=== PATIENT | female | born 1980 | race American Indian/Alaskan Native ===

== ENCOUNTER 2018-08-23 00:41 | Inpatient (IN) | payer SELFPAY ==
[2018-08-23 01:13] LABS: Basophils # (Auto) 0.1 K/mm3 (0.0-0.1); Basophils % (Auto) 0.6 % (0.0-1.8); Hematocrit 38.7 % (30.3-42.9); Lymphocytes # (Auto) 1.2 K/mm3 (1.2-5.4); Lymphocytes % (Auto) 14.2 % (13.4-35.0); Mean Corpuscular HGB Conc 34 % (30-34); Mean Corpuscular Volume 77 fl (79-97); Monocytes # (Auto) 0.9 K/mm3 (0.0-0.8); Monocytes % (Auto) 10.2 % (0.0-7.3); Platelet Count 249 K/mm3 (140-440); Red Blood Count 5.06 M/mm3 (3.65-5.03); Red Cell Distribution Width 14.8 % (13.2-15.2)
[2018-08-23 01:16] LABS: Mean Corpuscular Hemoglobin 26 pg (28-32)
[2018-08-23 01:25] LABS: Calcium 9.4 mg/dL (8.4-10.2)
--- NOTE | 2018-08-23 06:52 | Emergency Department Report ---
ED Abdominal Pain HPI - General Chief Complaint: Dyspnea/Respdistress Stated Complaint: LT SIDE PAIN ADEN Time Seen by Provider: 08/23/18 06:48 Source: patient Mode of arrival: Ambulatory Limitations: No Limitations - History of Present Illness Initial Comments: Patient's 38-year-old female presents emergency room with complaints of left lower quadrant pain. Patient states the pain is temperature. He states the pain is better with rest and worse with movement and palpation. Patient states that she is also having chills and nausea and vomiting. Patient states she is also near syncopal due to the amount of pain. Patient denies constipation. Patient denies diarrhea. Patient denies blood in his stool. Last menstrual period was 08/18/2018. MD Complaint: abdominal pain -: Sudden Location: LLQ Radiation: none Migration to: no migration Severity: severe Severity scale (0 -10): 10 Quality: stabbing, sharp Consistency: constant Improves With: rest Worsens With: movement Associated Symptoms: nausea, vomiting, chills. denies: diarrhea, fever, constipation, dysuria, hematemesis, hematochezia, melena, hematuria, anorexia, syncope - Related Data LMP (females 10-50): this week Home Medications Medication Instructions Recorded Confirmed Last Taken Meloxicam [Mobic] 7.5 mg PO QDAY 08/23/18 08/23/18 08/22/18 Allergies Allergy/AdvReac Type Severity Reaction Status Date / Time cheese Allergy Vomiting Verified 08/23/18 00:49 milk Allergy Vomiting Verified 08/23/18 00:49 sour cream Allergy Vomiting Uncoded 08/23/18 00:49 ED Review of Systems ROS: Stated complaint: LT SIDE PAIN ADEN Other details as noted in HPI Constitutional: chills. denies: fever Eyes: denies: eye pain, eye discharge, vision change ENT: denies: ear pain, throat pain Respiratory: denies: cough, shortness of breath, wheezing Cardiovascular: denies: chest pain, palpitations Endocrine: no symptoms reported Gastrointestinal: abdominal pain, nausea, vomiting. denies: diarrhea Genitourinary: denies: urgency, dysuria, discharge Musculoskeletal: denies: back pain, joint swelling, arthralgia Skin: denies: rash, lesions Neurological: denies: headache, weakness, paresthesias Psychiatric: denies: anxiety, depression Hematological/Lymphatic: denies: easy bleeding, easy bruising ED Past Medical Hx - Past Medical History Previous Medical History?: Yes Additional medical history: lupus - Surgical History Past Surgical History?: No - Family History Family history: no significant - Social History Smoking Status: Never Smoker Substance Use Type: None - Medications Home Medications: Home Medications Medication Instructions Recorded Confirmed Last Taken Type Meloxicam [Mobic] 7.5 mg PO QDAY 08/23/18 08/23/18 08/22/18 History ED Physical Exam - General Limitations: No Limitations General appearance: alert, in no apparent distress - Head Head exam: Present: atraumatic, normocephalic - Eye Eye exam: Present: normal appearance - ENT ENT exam: Present: mucous membranes moist - Neck Neck exam: Present: normal inspection - Respiratory Respiratory exam: Present: normal lung sounds bilaterally. Absent: respiratory distress - Cardiovascular Cardiovascular Exam: Present: regular rate, normal rhythm. Absent: systolic murmur, diastolic murmur, rubs, gallop - GI/Abdominal GI/Abdominal exam: Present: soft, tenderness (llq), normal bowel sounds - Extremities Exam Extremities exam: Present: normal inspection - Back Exam Back exam: Present: normal inspection - Neurological Exam Neurological exam: Present: alert, oriented X3 - Psychiatric Psychiatric exam: Present: normal affect, normal mood - Skin Skin exam: Present: warm, dry, intact, normal color. Absent: rash ED Course Vital Signs 08/23/18 08/23/18 08/23/18 00:50 04:45 04:54 Temperature 98.8 F 98.4 F Pulse Rate 74 64 Respiratory 16 15 Rate Blood Pressure 121/73 Blood Pressure 117/64 [Right] O2 Sat by Pulse 100 100 100 Oximetry 08/23/18 08/23/18 08/23/18 05:00 05:31 05:45 Temperature Pulse Rate 63 64 Respiratory 15 16 19 Rate Blood Pressure 119/69 119/69 Blood Pressure [Right] O2 Sat by Pulse 100 100 99 Oximetry 08/23/18 08/23/18 08/23/18 06:15 06:31 06:34 Temperature 98.4 F Pulse Rate 64 59 L 64 Respiratory 18 19 18 Rate Blood Pressure 111/75 111/75 Blood Pressure 111/75 [Right] O2 Sat by Pulse 99 99 99 Oximetry 10/10/18 10/10/18 10/10/18 06:41 06:51 12:29 Temperature Pulse Rate 61 65 87 Respiratory 18 19 16 Rate Blood Pressure 111/75 111/75 Blood Pressure 120/78 [Right] O2 Sat by Pulse 99 99 98 Oximetry - Reevaluation(s) Reevaluation #1: Discussed plan of care with patient. Patient agrees with plan of care and urology consult and stent placement. 08/23/18 09:54 - Consultations Consultation #1: urology consulted. Dr Godfrey recommends stent 08/23/18 09:53 Patient will be admitted to the hospitalist service and urology will be consulted. 08/23/18 11:26 Consultation #2: Hospitalist consulted for admission. Hospitalist to admit patient and assume care 08/23/18 11:27 ED Medical Decision Making - Lab Data Result diagrams: 08/23/18 01:02 08/23/18 01:02 - Radiology Data Radiology results: report reviewed CT ABDOMEN PELVIS WITHOUT CONTRAST: HISTORY: abdominal pain. COMPARISON: none. TECHNIQUE: Helical CT in 1.25mm intervals without IV contrast. Sagittal and coronal reconstructions. FINDINGS: Lung bases: Normal. Liver: Normal. Biliary system: Normal. Pancreas: Normal. Spleen: Normal. Kidneys/ureters/bladder: A 6 x 6 x 6 mm calculus is identified in the proximal left ureter at the level of L3. There is mild upstream left hydronephrosis. There are 2 calyceal stones in the superior left kidney measuring up to 3 mm. A 1 mm calyceal stone is identified in the mid right kidney. No right ureteral stones. The bladder is unremarkable. Adrenal glands: Normal. Aorta: Normal. Intestines: Within normal limits. Appendix: Not identified. Pelvic viscera: A 3.1 cm right adnexal cyst is suspected. A 5 cm exophytic fibroid from the uterine fundus is also suspected. The left adnexa is unremarkable. Ascites: Trace free pelvic fluid. Adenopathy: None. Musculoskeletal: Normal. IMPRESSION: 6 mm calculus in the proximal left ureter, mildly obstructing. Bilateral renal calyceal stones. 3.1 cm right ovarian cyst. Uterine fibroid. Transcribed By: TTR Dictated By: BRANDY RODRÍGUEZ JR, MD Electronically Authenticated By: BRANDY RODRÍGUEZ JR, MD Signed Date/Time: 08/23/18 5157 FINAL REPORT EXAM: XRAY CHEST 2 VIEWS HISTORY: shortness of breath COMPARISON: None available. FINDINGS:: Frontal and lateral views of the chest obtained. Cardiac silhouette is within normal limits. No focal consolidation or effusion. No pneumothorax. Visualized bony thorax is grossly intact. IMPRESSION:: No acute findings. Transcribed By: LMA Dictated By: AUGIE WEATHERS MD Electronically Authenticated By: AUGIE WEATHERS MD Signed Date/Time: 08/23/18 0132 - Medical Decision Making Patient is 38-year-old female presents emergency room with complaints of left flank pain and left lower abdominal pain. CT scan was done and shows a 6 mm stone in the left ureter. Urology was consulted and will see patient for a stent and possible further treatment. Patient will be admitted to the hospitalist service for further evaluation treatment. - Differential Diagnosis abdominal pain. Flank pain. Kidney stone. UTI. Gastroenteritis Critical care attestation.: If time is entered above; I have spent that time in minutes in the direct care of this critically ill patient, excluding procedure time. ED Disposition Clinical Impression: Left flank pain, Renal stone Abdominal pain Qualifiers: Abdominal location: left lower quadrant Qualified Code(s): R10.32 - Left lower quadrant pain Hydronephrosis Qualifiers: Hydronephrosis type: with renal calculous obstruction Qualified Code(s): N13.2 - Hydronephrosis with renal and ureteral calculous obstruction Disposition: OP ADMIT IP TO THIS HOSP Is pt being admited?: Yes Does the pt Need Aspirin: No Condition: Serious Time of Disposition: 11:26
[2018-08-23 07:29] LABS: HCG Qualitative,Urine Negative (Negative)
[2018-08-23 07:36] LABS: Bacteria,Urine 1+ /HPF (Negative); Bilirubin,Urine NEG (Negative); Blood,Urine LG (Negative); Color,Urine Yellow (Yellow); Mucus,Urine FEW /HPF; Protein,Urine <15 mg/dL mg/dL (Negative); Urobilinogen,Urine < 2.0 mg/dL (<2.0)
[2018-08-23 07:37] LABS: RBC,Urine > 182.0 /HPF (0.0-6.0)
--- NOTE | 2018-08-23 07:54 | Cat Scan Report ---
CT ABDOMEN PELVIS WITHOUT CONTRAST: HISTORY: abdominal pain. COMPARISON: none. TECHNIQUE: Helical CT in 1.25mm intervals without IV contrast. Sagittal and coronal reconstructions. FINDINGS: Lung bases: Normal. Liver: Normal. Biliary system: Normal. Pancreas: Normal. Spleen: Normal. Kidneys/ureters/bladder: A 6 x 6 x 6 mm calculus is identified in the proximal left ureter at the level of L3. There is mild upstream left hydronephrosis. There are 2 calyceal stones in the superior left kidney measuring up to 3 mm. A 1 mm calyceal stone is identified in the mid right kidney. No right ureteral stones. The bladder is unremarkable. Adrenal glands: Normal. Aorta: Normal. Intestines: Within normal limits. Appendix: Not identified. Pelvic viscera: A 3.1 cm right adnexal cyst is suspected. A 5 cm exophytic fibroid from the uterine fundus is also suspected. The left adnexa is unremarkable. Ascites: Trace free pelvic fluid. Adenopathy: None. Musculoskeletal: Normal. IMPRESSION: 6 mm calculus in the proximal left ureter, mildly obstructing. Bilateral renal calyceal stones. 3.1 cm right ovarian cyst. Uterine fibroid.
[2018-08-23] MEDS ORDERED: TORADOL IV ONE (09:05)
[2018-08-23] MEDS ORDERED: NACL 0.9% 1000 ML 1,000 ML IV ONE (09:05)
--- NOTE | 2018-08-23 10:28 | XRay Report ---
FINAL REPORT EXAM: XRAY CHEST 2 VIEWS HISTORY: shortness of breath COMPARISON: None available. FINDINGS:: Frontal and lateral views of the chest obtained. Cardiac silhouette is within normal limits. No focal consolidation or effusion. No pneumothorax. Visualized bony thorax is grossly intact. IMPRESSION:: No acute findings.
--- NOTE | 2018-08-23 13:22 | Progress Note ---
Assessment and Plan l ureteral stone for cysto stent poss l litho kub pain better will wait until am to do litho and poss stent dictated Subjective Date of service: 08/23/18 Principal diagnosis: ureteral stone Objective - Constitutional Vitals: Vital Signs - 12hr 08/23/18 08/23/18 08/23/18 04:45 04:54 05:00 Temperature 98.4 F Pulse Rate 64 Respiratory 15 15 Rate Blood Pressure Blood Pressure 117/64 [Right] O2 Sat by Pulse 100 100 100 Oximetry 08/23/18 08/23/18 08/23/18 05:31 05:45 06:15 Temperature Pulse Rate 63 64 64 Respiratory 16 19 18 Rate Blood Pressure 119/69 119/69 111/75 Blood Pressure [Right] O2 Sat by Pulse 100 99 99 Oximetry 08/23/18 08/23/18 08/23/18 06:31 06:34 06:41 Temperature 98.4 F Pulse Rate 59 L 64 61 Respiratory 19 18 18 Rate Blood Pressure 111/75 111/75 Blood Pressure 111/75 [Right] O2 Sat by Pulse 99 99 99 Oximetry 08/23/18 08/23/18 08/23/18 06:51 12:29 12:49 Temperature Pulse Rate 65 87 92 H Respiratory 19 16 19 Rate Blood Pressure 111/75 Blood Pressure 120/78 [Right] O2 Sat by Pulse 99 98 Oximetry 08/23/18 08/23/18 12:50 12:57 Temperature 97.3 F L Pulse Rate 90 55 L Respiratory 11 L 18 Rate Blood Pressure 144/90 Blood Pressure 111/71 [Right] O2 Sat by Pulse 99 100 Oximetry General appearance: Present: mild distress - Neck Neck: supple - Respiratory Respiratory effort: normal Extremities: no ischemia - Gastrointestinal General gastrointestinal: Present: soft, tender - Labs CBC & Chem 7: 08/23/18 01:02 08/23/18 01:02 Labs: Abnormal lab results 08/23/18 Range/Units 01:02 RBC 5.06 H (3.65-5.03) M/mm3 MCV 77 L (79-97) fl MCH 26 L (28-32) pg [place] % (Auto) 10.2 H (0.0-7.3) % [place] # 0.9 H (0.0-0.8) K/mm3 Seg Neutrophils % 75.0 H (40.0-70.0) %
--- NOTE | 2018-08-23 13:45 | XRay Report ---
AP ABDOMEN: HISTORY: Stone. A 6 mm calcification overlies the course of the proximal left ureter. No additional renal calcifications are identified on x-ray. The bowel gas pattern is within normal limits. The bony structures are intact. IMPRESSION: Left ureteral stone.
--- NOTE | 2018-08-23 13:45 | Consultation ---
HISTORY OF PRESENT ILLNESS: The patient is a 38-year-old woman who presents with severe unremitting left flank pain. She had a CT scan, which revealed a ureteral stone, 6 x 6 mm in the proximal left ureter. Her pain is somewhat better. I was about to place a stent, but then we realized that a lithotripsy machine is better and her pain is somewhat better. She is treated with pain medications. She will have lithotripsy tomorrow. She also has a small cyst in her right ovary. PAST MEDICAL HISTORY: She denies any history. She has had no previous stones. FAMILY HISTORY: Negative. SOCIAL HISTORY: Noncontributory. She is with her group traveling from [place]. REVIEW OF SYSTEMS: Left flank pain, severe nausea and vomiting. PHYSICAL EXAMINATION: On exam, she is awake and alert. Her pain is somewhat better. She still has a dull ache. Abdomen is soft and nondistended. IMPRESSION: Left upper ureteral stone. She is not septic. At this point, we offered her to go home. She can come back tomorrow, but her pain is mild compared to how it was 2 hours ago. She wanted to stay. We have the machine here. Tomorrow we could do a lithotripsy and possible stent to see whether it fragments. I explained to her that she may or may not require a stent. If the stone moves distally, we could do ureteroscopy. Informed consent was given. All options were discussed and she understands. JOB# [id number] POLLY/JORDIN
[2018-08-23] MEDS ORDERED: MORPHINE IV PRN (15:42)
[2018-08-23] MEDS ORDERED: DILAUDID IV PRN (15:42)
[2018-08-23] MEDS ORDERED: PERCOCET 5/325 PO PRN (15:42)
[2018-08-23] MEDS ORDERED: TYLENOL PO PRN (15:42)
[2018-08-23] MEDS ORDERED: AMBIEN PO PRN (15:42)
[2018-08-23] MEDS ORDERED: SODIUM CHLORIDE FLUSH SYRINGE 10 ML IV PRN (15:42)
--- NOTE | 2018-08-23 15:42 | History and Physical Report ---
History of Present Illness Date of examination: 08/23/18 Date of admission: 08/23/18 11:45 Chief complaint: Left flank pain for 1 day History of present illness: History of Present Illness: 38-year-old female with no significant past medical history comes in for left flank pain which is sharp in nature. Pain is over 10 on a scale of 1-10. Also chills and nausea and vomiting present. No exacerbating or relieving factors. Never had a renal colic in the past. No exacerbating or relieving factors Past Medical History Previous Medical History?: Yes Additional medical history: lupus Surgical History Past Surgical History?: No Family History Family history: no significant Social History Smoking Status: Never Smoker Substance Use Type: None Medications Home Medications: Home Medications Medication Instructions Recorded Confirmed Last Taken Type Meloxicam [Mobic] 7.5 mg PO QDAY 08/23/18 08/23/18 08/22/18 History Review of Systems ROS: Stated complaint: LT SIDE PAIN ADEN Other details as noted in HPI Constitutional: chills. denies: fever Eyes: denies: eye pain, eye discharge, vision change ENT: denies: ear pain, throat pain Respiratory: denies: cough, shortness of breath, wheezing Cardiovascular: denies: chest pain, palpitations Endocrine: no symptoms reported Gastrointestinal: abdominal pain, nausea, vomiting. denies: diarrhea Genitourinary: denies: urgency, dysuria, discharge Musculoskeletal: denies: back pain, joint swelling, arthralgia Skin: denies: rash, lesions Neurological: denies: headache, weakness, paresthesias Psychiatric: denies: anxiety, depression Hematological/Lymphatic: denies: easy bleeding, easy bruising Past History Past Medical History: other (Lupus) Past Surgical History: No surgical history Social history: no significant social history, lives with family, full code Family history: hypertension Medications and Allergies Allergies Allergy/AdvReac Type Severity Reaction Status Date / Time cheese Allergy Vomiting Verified 08/23/18 00:49 milk Allergy Vomiting Verified 08/23/18 00:49 sour cream Allergy Vomiting Uncoded 08/23/18 00:49 Home Medications Medication Instructions Recorded Confirmed Last Taken Type Meloxicam [Mobic] 7.5 mg PO QDAY 08/23/18 08/23/18 08/22/18 History Active Meds: Active Medications Dextrose/Sodium Chloride (D5ns) 1,000 mls @ 100 mls/hr IV DIRECT BRYCE Review of Systems All systems: negative Genitourinary Female: flank pain Exam - Constitutional Vitals: Temp Pulse Resp BP Pulse Ox 97.3 F L 55 L 18 111/71 100 08/23/18 12:57 08/23/18 12:57 08/23/18 12:57 08/23/18 12:57 08/23/18 12:57 General appearance: Present: no acute distress, well-nourished - EENT Eyes: Present: PERRL ENT: hearing intact, clear oral mucosa - Neck Neck: Present: supple, normal ROM - Respiratory Respiratory effort: normal Respiratory: bilateral: CTA - Cardiovascular Heart rate: 76 Rhythm: regular Heart Sounds: Present: S1 & S2. Absent: rub, click - Extremities Extremities: no ischemia, pulses intact, pulses symmetrical, No edema Peripheral Pulses: within normal limits - Abdominal General gastrointestinal: Present: soft, non-tender, non-distended, normal bowel sounds Female genitourinary: Present: normal - Rectal Rectal Exam: deferred - Integumentary Integumentary: Present: clear, warm, dry - Musculoskeletal Musculoskeletal: gait normal, strength equal bilaterally - Psychiatric Psychiatric: appropriate mood/affect, intact judgment & insight - Neurologic Neurologic: CNII-XII intact, moves all extremities - Allied Health Allied health notes reviewed: nursing, case management Results - Labs CBC & Chem 7: 08/23/18 01:02 08/23/18 01:02 Labs: Laboratory Last Values WBC 8.7 K/mm3 (4.5-11.0) 08/23/18 01:02 RBC 5.06 M/mm3 (3.65-5.03) H 08/23/18 01:02 Hgb 13.0 gm/dl (10.1-14.3) 08/23/18 01:02 Hct 38.7 % (30.3-42.9) 08/23/18 01:02 MCV 77 fl (79-97) L 08/23/18 01:02 MCH 26 pg (28-32) L 08/23/18 01:02 MCHC 34 % (30-34) 08/23/18 01:02 RDW 14.8 % (13.2-15.2) 08/23/18 01:02 Plt Count 249 K/mm3 (140-440) 08/23/18 01:02 Lymph % (Auto) 14.2 % (13.4-35.0) 08/23/18 01:02 [place] % (Auto) 10.2 % (0.0-7.3) H 08/23/18 01:02 Eos % (Auto) 0.0 % (0.0-4.3) 08/23/18 01:02 Baso % (Auto) 0.6 % (0.0-1.8) 08/23/18 01:02 Lymph # 1.2 K/mm3 (1.2-5.4) 08/23/18 01:02 [place] # 0.9 K/mm3 (0.0-0.8) H 08/23/18 01:02 Eos # 0.0 K/mm3 (0.0-0.4) 08/23/18 01:02 Baso # 0.1 K/mm3 (0.0-0.1) 08/23/18 01:02 Seg Neutrophils % 75.0 % (40.0-70.0) H 08/23/18 01:02 Seg Neutrophils # 6.5 K/mm3 (1.8-7.7) 08/23/18 01:02 Sodium 141 mmol/L (137-145) 08/23/18 01:02 Potassium 4.0 mmol/L (3.6-5.0) 08/23/18 01:02 Chloride 100.5 mmol/L (98-107) 08/23/18 01:02 Carbon Dioxide 27 mmol/L (22-30) 08/23/18 01:02 Anion Gap 18 mmol/L 08/23/18 01:02 BUN 11 mg/dL (7-17) 08/23/18 01:02 Creatinine 1.1 mg/dL (0.7-1.2) 08/23/18 01:02 Estimated GFR 56 ml/min 08/23/18 01:02 BUN/Creatinine Ratio 10 % 08/23/18 01:02 Glucose 88 mg/dL (65-100) 08/23/18 01:02 Calcium 9.4 mg/dL (8.4-10.2) 08/23/18 01:02 Urine Color Yellow (Yellow) 08/23/18 07:02 Urine Turbidity Slightly-cloudy (Clear) 08/23/18 07:02 Urine pH 5.0 (5.0-7.0) 08/23/18 07:02 Ur Specific [place] 1.012 (1.003-1.030) 08/23/18 07:02 Urine Protein <15 mg/dl mg/dL (Negative) 08/23/18 07:02 Urine Glucose (UA) Neg mg/dL (Negative) 08/23/18 07:02 Urine Ketones 80 mg/dL (Negative) 08/23/18 07:02 Urine Blood Lg (Negative) 08/23/18 07:02 Urine Nitrite Neg (Negative) 08/23/18 07:02 Ur Reducing Substances Not Reportable 08/23/18 07:02 Urine Bilirubin Neg (Negative) 08/23/18 07:02 Urine Ictotest Not Reportable 08/23/18 07:02 Urine Urobilinogen < 2.0 mg/dL (<2.0) 08/23/18 07:02 Ur Leukocyte Esterase Neg (Negative) 08/23/18 07:02 Urine WBC (Auto) 5.0 /HPF (0.0-6.0) 08/23/18 07:02 Urine RBC (Auto) > 182.0 /HPF (0.0-6.0) 08/23/18 07:02 U Epithel Cells (Auto) 1.0 /HPF (0-13.0) 08/23/18 07:02 Urine Bacteria (Auto) 1+ /HPF (Negative) 08/23/18 07:02 Urine Mucus Few /HPF 08/23/18 07:02 Urine HCG, Qual Negative (Negative) 08/23/18 07:02 - Imaging and Cardiology Imaging and Cardiology: CT abdomen IMPRESSION: 6 mm calculus in the proximal left ureter, mildly obstructing. Bilateral renal calyceal stones. 3.1 cm right ovarian cyst. Uterine fibroid. Assessment and Plan Advance Directives: Yes (full code) VTE prophylaxis?: Chemical Plan of care discussed with patient/family: Yes - Patient Problems (1) Hydronephrosis Current Visit: Yes Status: Acute Qualifiers: Hydronephrosis type: with renal calculous obstruction Qualified Code(s): N13.2 - Hydronephrosis with renal and ureteral calculous obstruction Plan to address problem: Patient for ureteral stent tomorrow Dr. Espinoza consulted (2) Renal stone Current Visit: Yes Status: Acute Plan to address problem: Patient being admitted for IV fluids and pain control (3) DVT prophylaxis Current Visit: Yes Status: Acute Plan to address problem: Lovenox 40 mg subcutaneous daily
[2018-08-23] MEDS ORDERED: TORADOL IV PRN (15:44)
[2018-08-23] MEDS: D5NS 1,000 ML IV SCH (17:10)
[2018-08-23] MEDS ORDERED: SODIUM CHLORIDE FLUSH SYRINGE 10 ML IV SCH (22:00)
[2018-08-23] MEDS: PEPCID PO SCH (22:12)
[2018-08-23] MEDS: ZOFRAN IV PRN (22:12)
[2018-08-24] MEDS: D5NS 1,000 ML IV SCH (04:23)
[2018-08-24 06:08] LABS: Alanine Aminotransferase 9 units/L (7-56); Albumin 3.2 g/dL (3.9-5); BUN/Creatinine Ratio 12; Blood Urea Nitrogen 13 mg/dL (7-17); Calcium 7.8 mg/dL (8.4-10.2); Hemolysis Index 4
[2018-08-24 07:22] LABS: Basophils % (Auto) 0.5 % (0.0-1.8); Eosinophils % (Auto) 0.4 % (0.0-4.3); Hematocrit 34.1 % (30.3-42.9); Hemoglobin 11.5 gm/dl (10.1-14.3); Lymphocytes # (Auto) 1.3 K/mm3 (1.2-5.4); Lymphocytes % (Auto) 21.7 % (13.4-35.0); Mean Corpuscular HGB Conc 34 % (30-34); Mean Corpuscular Hemoglobin 26 pg (28-32); Mean Corpuscular Volume 77 fl (79-97); Monocytes # (Auto) 0.7 K/mm3 (0.0-0.8); Monocytes % (Auto) 11.9 % (0.0-7.3); Platelet Count 192 K/mm3 (140-440); Red Blood Count 4.43 M/mm3 (3.65-5.03); Red Cell Distribution Width 15.1 % (13.2-15.2)
[2018-08-24] MEDS ORDERED: ZOFRAN IV PRN (08:00)
[2018-08-24] MEDS ORDERED: VERSED IV NR (08:00)
[2018-08-24] MEDS ORDERED: DILAUDID IV PRN (08:00)
[2018-08-24] MEDS ORDERED: DEMEROL IV PRN (08:00)
[2018-08-24] MEDS ORDERED: DIPRIVAN 10 MG/ML IV ONE (10:51)
[2018-08-24] MEDS ORDERED: XYLOCAINE MPF 2% ONE (10:51)
[2018-08-24] MEDS ORDERED: DECADRON ONE (10:52)
[2018-08-24] MEDS: PEPCID PO SCH (11:21)
[2018-08-24] MEDS ORDERED: LACTATED RINGERS 1,000 ML IV SCH ×2 (11:30→12:30)
--- NOTE | 2018-08-24 11:46 | Anesthesia Consultation ---
Anesthesia Consult and Med Hx Date of service: 08/24/18 - Airway Anesthetic Teeth Evaluation: Good ROM Head & Neck: Adequate Mental/Hyoid Distance: Adequate Mallampati Class: Class II Intubation Access Assessment: Probably Good - Pulmonary Exam CTA: Yes - Cardiac Exam Cardiac Exam: RRR - Pre-Operative Health Status ASA Pre-Surgery Classification: ASA2 Proposed Anesthetic Plan: General - Pulmonary Hx Smoking: No Hx Asthma: No Hx Respiratory Symptoms: No SOB: No - Cardiovascular System Hx Hypertension: No Hx Coronary Artery Disease: No Hx Heart Attack/AMI: No Hx Angina: No Hx Percutaneous Transluminal Coronary Angioplasty (PTCA): No Hx Pacemaker: No Hx Internal Defibrillator: No Hx Valvular Heart Disease: No Hx Heart Murmur: No Hx Peripheral Vascular Disease: No - Central Nervous System Hx Seizures: No CVA: No Hx Psychiatric Problems: No - Gastrointestinal Hx Ulcer: No - Endocrine Hx Renal Disease: No Hx Liver Disease: No Hx Insulin Dependent Diabetes: No Hx Thyroid Disease: No - Additional Comments Anesthesia Medical History Comments: Hx SLE on meloxicam. No recent steroid or immunosuppresant use. NO hx anesthetic complications.
[2018-08-24] MEDS ORDERED: ANCEF/STERILE WATER 2 GM/20 ML IV NR (12:00)
--- NOTE | 2018-08-24 12:07 | Anesthesia Day of Surgery ---
Anesthesia Day of Surgery - Day of Surgery Patient Examined: Yes Patient H&P Reviewed: Yes Patient is NPO: Yes
[2018-08-24] MEDS ORDERED: WATER FOR IRRIG STERILE IR ONE (13:05)
--- NOTE | 2018-08-24 13:24 | Short Stay Summary ---
Short Stay Documentation Date of service: 08/24/18 - History H&P: obtained from office Past Medical History: other (Lupus) Past Surgical History: No surgical history Social history: no significant social history, lives with family, full code - Allergies and Medications Current Medications: Allergies cheese Allergy (Verified 08/23/18 00:49) Vomiting milk Allergy (Verified 08/23/18 00:49) Vomiting sour cream Allergy (Uncoded 08/23/18 00:49) Vomiting Home Medications Medication Instructions Recorded Confirmed Last Taken Type Meloxicam [Mobic] 7.5 mg PO QDAY 08/23/18 08/23/18 08/22/18 History Active Medications Acetaminophen (Tylenol) 650 mg PO Q4H PRN PRN Reason: Pain MILD(1-3)/Fever >100.5/ORR Cefazolin Sodium (Ancef/Sterile Water 2 Gm/20 Ml) 2 gm IV PREOP NR Stop: 08/24/18 20:00 Famotidine (Pepcid) 20 mg PO BID BRYCE Last Admin: 08/24/18 11:21 Dose: 20 mg Hydromorphone HCl (Dilaudid) 1 mg IV Q3H PRN PRN Reason: Pain , Severe (7-10) Hydromorphone HCl (Dilaudid) 0.5 mg IV Q10MIN PRN PRN Reason: Pain , Severe (7-10) Stop: 08/24/18 20:00 Dextrose/Sodium Chloride (D5ns) 1,000 mls @ 100 mls/hr IV DIRECT BRYCE Last Admin: 08/24/18 04:23 Dose: 100 mls/hr Lactated Ringer's (Lactated Ringers) 1,000 mls @ 100 mls/hr IV DIRECT [facility] Ketorolac Tromethamine (Toradol) 15 mg IV Q6H PRN PRN Reason: Pain, Mild (1-3) Stop: 08/28/18 15:43 Last Admin: 08/24/18 01:20 Dose: 15 mg Meperidine HCl (Demerol) 25 mg IV ONCE PRN PRN Reason: Shivering Stop: 08/24/18 20:00 Midazolam HCl (Versed) 2 mg IV PREOP NR Stop: 08/24/18 23:59 Last Admin: 08/24/18 11:35 Dose: 2 mg Morphine Sulfate (Morphine) 2 mg IV Q4H PRN PRN Reason: Pain, Moderate (4-6) Ondansetron HCl (Zofran) 4 mg IV Q8H PRN PRN Reason: Nausea And Vomiting Last Admin: 08/23/18 22:12 Dose: 4 mg Ondansetron HCl (Zofran) 4 mg IV ONCE PRN PRN Reason: Nausea And Vomiting Stop: 08/24/18 15:00 Oxycodone/Acetaminophen (Percocet 5/325) 1 tab PO Q6H PRN PRN Reason: Pain, Moderate (4-6) Sodium Chloride (Sodium Chloride Flush Syringe 10 Ml) 10 ml IV BID BRYCE Last Admin: 08/23/18 22:13 Dose: 10 ml Sodium Chloride (Sodium Chloride Flush Syringe 10 Ml) 10 ml IV PRN PRN PRN Reason: LINE FLUSH Zolpidem Tartrate (Ambien) 5 mg PO QHS PRN PRN Reason: Insomnia - Physical exam Extremities: no ischemia, pulses intact, pulses symmetrical, No edema - Brief post op/procedure progress note Date of procedure: 08/24/18 Pre-op diagnosis: left proximal ureteral stone - 6mm Post-op diagnosis: same Procedure: cysto, rpg, stent, ESWL Anesthesia: GETA Surgeon: FANI PEREZ Estimated blood loss: none Condition: stable - Hospital course Hospital course: CIPRO, PERCOCET, POST OP INFO ON CHART / PT OK TO DC (TRAVEL)/F/U WITH US OR IN [place] - Disposition Condition at discharge: Stable Disposition: DC-01 TO HOME OR SELFCARE Short Stay Discharge Plan Follow up with: PRIMARY CARE, [Primary Care Provider] - 3-5 Days
[2018-08-24] MEDS: ZOFRAN IV PRN (14:41)
--- NOTE | 2018-08-24 14:52 | Operative Report ---
PREOPERATIVE DIAGNOSIS: Left proximal ureteral stone, 6 mm. POSTOPERATIVE DIAGNOSIS: Left proximal ureteral stone, 6 mm. PROCEDURE: Extracorporal shock wave lithotripsy, cystoscopies, left retrograde pyelogram, left double-J stent (6 [place] x 24 cm with an external string). SURGEON: Jim Tripp MD ANESTHESIA: General. ESTIMATED BLOOD LOSS: Minimal. FLUIDS: Crystalloid. COMPLICATIONS: No complications. INDICATIONS: This patient is a 38-year-old female who presented to the Emergency Room with left flank pain. CT of abdomen and pelvis revealed a 6 mm stone. She was seen by this Dr. Godfrey in consultation. She continued to have pain. She actually is visiting from [place]. We discussed options, she agreed to proceed with treatment. Risks, benefits, and complications were discussed. Written information given. DESCRIPTION OF PROCEDURE: The patient was taken to the operative suite, placed in a supine position. After adequate general anesthesia, her 6 mm proximal ureteral stone was localized in 2 planes. Extracorporal shock wave lithotripsy was administered using the Dornier delta 3 unit, titrated up to a kV of 4 with 3000 shocks, gradually adequate fragmentation could be appreciated. Due to proximal ureteral stone ____ I elected to also place a stent. She was then placed in a dorsal lithotomy position, prepped and draped. Cystoscopy was performed. Retrograde pyelogram performed. You could see some dilatation of the proximal ureter, did not see a clear stone, it looks like it had been fragmented. A 0.035 Glidewire was placed, 6-Mohawk x 24 cm double-J stent with an external string was left indwelling. She tolerated the procedure well, extubated and taken to recovery room. She will go home on Percocet and Cipro. JOB# [id number] [facility]
--- NOTE | 2018-08-24 16:09 | Discharge Summary ---
Providers - Providers Date of Admission: 08/23/18 11:45 Attending physician: JOSE MÁRQUEZ MD 08/23/18 Consult to Case Management [CONS] Routine Services Needed at Discharge: Home Health Services Notified:: Sonia 08/23/18 11:31 Consult to Physician [CONS] Routine Comment: Consulting Provider: CJ HARRIS Physician Instructions: Reason For Exam: renal stone w obs Primary care physician: FISH PROCESSOR Hospitalization Condition: Stable Pertinent studies: CT abdomen 6 mm calculus in the proximal left ureter, mildly obstructing. Bilateral renal calyceal stones. 3.1 cm right ovarian cyst. Uterine fibroid. Procedures: cysto, rpg, stent, ESWL Hospital course: 38-year-old female with no significant past medical history comes in for left flank pain which is sharp in nature. Pain is over 10 on a scale of 1-10. Also chills and nausea and vomiting present. No exacerbating or relieving factors. Never had a renal colic in the past. No exacerbating or relieving factors. Patient is admitted to the medical service, pain control, urology was consulted and did cysto, rpg, stent, ESWL was given cipro pain medicine by urology. Patient was cleared by urology for discharge with the advice to have follow up with her doctor. Patient was hemodynamically stable at the time of discharge Disposition: DC-01 TO HOME OR SELFCARE Time spent for discharge: 31 minutes - Discharge Diagnoses (1) Abdominal pain Status: Acute Qualifiers: Abdominal location: left lower quadrant Qualified Code(s): R10.32 - Left lower quadrant pain (2) Hydronephrosis Status: Acute Qualifiers: Hydronephrosis type: with renal calculous obstruction Qualified Code(s): N13.2 - Hydronephrosis with renal and ureteral calculous obstruction (3) Left flank pain Status: Acute (4) Renal stone Status: Acute Core Measure Documentation - Palliative Care Palliative Care/ Comfort Measures: Not Applicable - Core Measures Any of the following diagnoses?: none Exam - Physical Exam Narrative exam: Not in cardiopulmonary distress. The patient appeared well nourished and normally developed. Vital signs as documented. Head exam is unremarkable. No scleral icterus . Neck is without jugular venous distension, thyromegaly, or carotid bruits. Lungs are clear to auscultation. Cardiac exam reveals regular rate and Rhythm. Abdominal exam reveals normal bowel sounds, no masses, no organomegaly and no aortic enlargement. Extremities are nonedematous and both femoral and pedal pulses are normal. [employer]: Alert and oriented 3. No focal weakness. - Constitutional Vitals: Temp Pulse Resp BP Pulse Ox 97.1 F L 50 L 18 140/82 98 08/24/18 14:13 08/24/18 14:13 08/24/18 14:13 08/24/18 14:13 08/24/18 14:13 Plan Activity: no restrictions Weight Bearing Status: Full Weight Bearing Diet: regular Additional Instructions: Follow with with in 1-2 weeks. patient is out of town. Follow up with: PRIMARY CARE, [Primary Care Provider] - 3-5 Days
[2018-08-24 17:52] VITALS: BP 138/78
== END 2018-08-24 21:21 | disposition home or self-care (01) | DRG 661 ==
LOC: ED 00:41 → 3A 11:45
PROVIDERS: ADMIT Internal Medicine; ATTEND Internal Medicine
PROC: 0T778DZ Dilation of Left Ureter with Intraluminal Device, Via Natural or Artificial Opening Endoscopic (ICD-10-PCS; principal; 2018-08-24)
PROC: 0TF78ZZ Fragmentation in Left Ureter, Via Natural or Artificial Opening Endoscopic (ICD-10-PCS; 2018-08-24)
PROC: BT1F1ZZ Fluoroscopy of Left Kidney, Ureter and Bladder using Low Osmolar Contrast (ICD-10-PCS; 2018-08-24)
DX: N13.2 Hydronephrosis with renal and ureteral calculous obstruction (principal); M32.9 Systemic lupus erythematosus, unspecified; Z91.018 Allergy to other foods; Z82.49 Family history of ischemic heart disease and other diseases of the circulatory system; Z91.011 Allergy to milk products
CPT/HCPCS: 36415; 71046; 74018; 74176; 80048; 80053; 81001; 81025; 83036; 85025; 93005; 93010; 96361; 96374; A4217; C1758; C1769; C1885; C2617; J0690; J1100; J1170; J1885; J2250; J2405; J2704; J7030; J7042; J7120